=== PATIENT | female | born 1960 | race American Indian/Alaskan Native ===

== ENCOUNTER 2019-01-08 22:16 | Observation (INO) | payer OTHER ==
[2019-01-08] MEDS ORDERED: ASPIRIN PO ONE (22:34)
[2019-01-08 22:57] LABS: Basophils # (Auto) 0.1 K/mm3 (0.0-0.1); Eosinophils # (Auto) 0.1 K/mm3 (0.0-0.4); Eosinophils % (Auto) 1.8 % (0.0-4.3); Hematocrit 36.8 % (30.3-42.9); Hemoglobin 12.3 gm/dl (10.1-14.3); Lymphocytes # (Auto) 2.9 K/mm3 (1.2-5.4); Lymphocytes % (Auto) 38.1 % (13.4-35.0); Mean Corpuscular HGB Conc 34 % (30-34); Mean Corpuscular Volume 85 fl (79-97); Monocytes # (Auto) 0.6 K/mm3 (0.0-0.8); Monocytes % (Auto) 7.9 % (0.0-7.3); Platelet Count 343 K/mm3 (140-440); Red Blood Count 4.31 M/mm3 (3.65-5.03); Red Cell Distribution Width 13.7 % (13.2-15.2)
--- NOTE | 2019-01-08 23:02 | Emergency Department Report ---
ED Chest Pain HPI - General Chief Complaint: Chest Pain Stated Complaint: CHEST PAIN Time Seen by Provider: 01/08/19 22:42 Source: patient, family Mode of arrival: Ambulatory Limitations: No Limitations - History of Present Illness Initial Comments: 58-year-old -[place] female presents to the emergency department with complaint of some midsternal nonradiating chest pressure that started while the patient was at the movies. She describes it as a heaviness. It is associated with some shortness of breath. The patient says that she stood up and got dizzy and "I felt like I was walking through a tunnel." The patient took a sublingual nitroglycerin without any resolution or improvement of her chest pain, but it did cause a headache. She has a past medical history of hypertension, GERD, coronary artery disease with a "mild" heart attack. She does not have any cardiac stents. Patient's primary care physician is a Dr. Viraj Zepeda. She has seen a certified personal finance counselor and had a negative stress test back in October or November of this year. She denies any tobacco or illicit drug use. Severity scale (0 -10): 7 - Related Data Allergies Allergy/AdvReac Type Severity Reaction Status Date / Time Sulfa (Sulfonamide Allergy Anaphylaxis Verified 01/08/19 22:20 Antibiotics) Heart Score - HEART Score History: Moderately suspicious EKG: Normal Age: 45-65 Risk factors: > 3 risk factors or hx of atherosclerotic disease Troponin: < normal limit HEART Score: 4 - Critical Actions Critical Actions: 4-6 pts:12-16.6% risk of adverse cardiac event. Should be admitted ED Review of Systems ROS: Stated complaint: CHEST PAIN Other details as noted in HPI Comment: All other systems reviewed and negative Constitutional: denies: chills, fever Eyes: denies: eye pain, vision change ENT: denies: ear pain, throat pain Respiratory: shortness of breath. denies: cough Cardiovascular: chest pain. denies: palpitations Gastrointestinal: denies: abdominal pain, vomiting Genitourinary: denies: dysuria, discharge Musculoskeletal: denies: back pain, arthralgia Skin: denies: rash, lesions Neurological: denies: weakness, numbness ED Past Medical Hx - Past Medical History Hx Hypertension: Yes Hx Heart Attack/AMI: Yes (MILD) Hx GERD: Yes - Surgical History Hx Cholecystectomy: Yes Additional Surgical History: HYSTERECTOMY - Social History Smoking Status: Never Smoker Substance Use Type: Alcohol ED Physical Exam - General Limitations: No Limitations - Other Other exam information: GENERAL: The patient is well-developed well-nourished. HENT: Normocephalic. Atraumatic. Patient has moist mucous membranes. EYES: Extraocular motions are intact. NECK: Supple. Trachea is midline. CHEST/LUNGS: Clear to auscultation. There is no respiratory distress noted. HEART/CARDIOVASCULAR: Regular. There is no tachycardia. There is no murmur. ABDOMEN: Abdomen is soft, nontender. Patient has normal bowel sounds. There is no abdominal distention. SKIN: Skin is warm and dry. NEURO: The patient is awake, alert, and oriented. The patient is cooperative. The patient has no focal neurologic deficits. The patient has normal speech. Cranial nerves II through XII grossly intact. MUSCULOSKELETAL: There is no tenderness or deformity. There is no limitation range of motion. There is no evidence of acute injury. ED Course Vital Signs 01/08/19 01/08/19 01/08/19 22:31 22:55 23:49 Temperature 98 F 98.0 F Pulse Rate 81 80 Respiratory 18 16 16 Rate Blood Pressure 120/79 Blood Pressure 131/84 [Left] O2 Sat by Pulse 98 96 Oximetry ASYA score - Asya Score Age > 65: (0) No Aspirin use within the Past 7 Days: (1) Yes 3 or more CAD Risk Factors: (1) Yes 2 or more Angina events in past 24 hrs: (1) Yes Known CAD with more than 50% Stenosis: (0) No Elevated Cardiac Markers: (0) No ST Deviation Greater than 0.5mm: (0) No ASYA Score: 3 ED Medical Decision Making - Lab Data Result diagrams: 01/08/19 22:45 01/08/19 22:45 - EKG Data -: EKG Interpreted by Me EKG shows normal: sinus rhythm (PVCs), axis, intervals, QRS complexes (low voltage), ST-T waves Rate: normal - EKG Data When compared to previous EKG there are: previous EKG unavailable Interpretation: other (sinus rhythm with PVCs, low voltage. No ST elevation ID) - Radiology Data Radiology results: image reviewed interpreted by me: Chest x-ray does not show any acute process. There are no pleural effusions, obvious pneumonia and there is no pneumothorax. - Medical Decision Making This patient presents with some acute midsternal chest pain/pressure that she describes as a heaviness, as if someone is sitting on her chest. Patient did not have much response to a sublingual nitroglycerin, nor much to a dose of morphine. EKG does not show any signs of ST elevation ID or dysrhythmia. Patient's labs so far are unremarkable including a negative troponin and negative d-dimer. Chest x-ray does not show any pleural effusions, pneumothorax, focal consolidation, pneumonia, or any other acute process. Allegedly, the patient had a negative stress test a few months ago. However this may still be angina. She is moderate on the hard score and ASYA score. The patient will be admitted to the hospital for further evaluation and treatment and was accepted for admission by the hospitalist, Dr. North. - Differential Diagnosis ID, Angina, Pneumonia, GERD Critical Care Time: No Critical care attestation.: If time is entered above; I have spent that time in minutes in the direct care of this critically ill patient, excluding procedure time. ED Disposition Clinical Impression: Acute chest pain, Ruled out for myocardial infarction Disposition: OP ADMIT IP TO THIS HOSP Is pt being admited?: Yes Condition: Fair Instructions: Chest Pain (ED) Referrals: LORETTA POWERS MD [Primary Care Provider] - 3-5 Days Time of Disposition: 00:11
[2019-01-08] MEDS ORDERED: MORPHINE IV ONE (23:17)
--- NOTE | 2019-01-08 23:18 | XRay Report ---
CHEST 1 VIEW 10:54 PM INDICATION / CLINICAL INFORMATION: CHEST PAIN. COMPARISON: None available. FINDINGS: SUPPORT DEVICES: None. HEART / MEDIASTINUM: The heart size and pulmonary vasculature are normal. The aorta is normal in jose sondra. LUNGS / PLEURA: No significant pulmonary or pleural abnormality. No pneumothorax. ADDITIONAL FINDINGS: No significant additional findings. IMPRESSION: No acute findings. Signer Name: Colt Gill MD Signed: 01/08/2019 11:13 PM Workstation Name: [id number]
[2019-01-08 23:19] LABS: BUN/Creatinine Ratio 26; Blood Urea Nitrogen 18 mg/dL (7-17); Calcium 9.6 mg/dL (8.4-10.2); Hemolysis Index 6
[2019-01-09] MEDS ORDERED: ZOFRAN IV PRN (00:57)
[2019-01-09] MEDS ORDERED: TYLENOL PO PRN (00:57)
[2019-01-09] MEDS ORDERED: SODIUM CHLORIDE FLUSH SYRINGE 10 ML IV PRN (00:57)
[2019-01-09] MEDS ORDERED: MORPHINE IV PRN (01:02)
--- NOTE | 2019-01-09 01:40 | History and Physical Report ---
History of Present Illness Date of examination: 01/09/19 Chief complaint: Chest pain History of present illness: Patient is a 58 year old -British female with history of hypertension an d questionable CAD who presented to the ED on account of few hours history of midsternal chest pain. She described it as pressure-like in character, rated 8/10 and non-radiating. Pain is worse with sitting up but no known relieving factors. She has associated cough, headache and lightheadedness. She denies shortness of breath, palpitation, diaphoresis, arm numbness or tingling sensation, fever, chills, leg swelling, orthopnea, PND, syncope or loss of consciousness. Her last stress test was few months ago at [place], [place] which was negative. Past History Past Medical History: GERD, hypertension, other (Questionable CAD) Past Surgical History: cholecystectomy, hysterectomy (partial ) Social history: other (she admits to occasional alcohol use but denies tobacco or illicit drug use) Family history: other (Father from heart attack in his 60's) Medications and Allergies Allergies Allergy/AdvReac Type Severity Reaction Status Date / Time Sulfa (Sulfonamide Allergy Anaphylaxis Verified 01/08/19 22:20 Antibiotics) Active Meds: Active Medications Acetaminophen (Tylenol) 650 mg PO Q4H PRN PRN Reason: Pain MILD(1-3)/Fever >100.5/KNOTT Enoxaparin Sodium (Lovenox) 40 mg SUB-Q QDAY@1000 [place] Famotidine (Pepcid) 20 mg PO BID [place] Morphine Sulfate (Morphine) 2 mg IV Q4H PRN PRN Reason: Pain , Severe (7-10) Ondansetron HCl (Zofran) 4 mg IV Q8H PRN PRN Reason: Nausea And Vomiting Oxycodone/Acetaminophen (Percocet 5/325) 1 tab PO Q6H PRN PRN Reason: Pain, Moderate (4-6) Sodium Chloride (Sodium Chloride Flush Syringe 10 Ml) 10 ml IV BID [place] Sodium Chloride (Sodium Chloride Flush Syringe 10 Ml) 10 ml IV PRN PRN PRN Reason: LINE FLUSH Review of Systems All systems: negative (all other systems reviewed with the patient and are negative) Exam - Constitutional Vitals: Temp Pulse Resp BP Pulse Ox 98.0 F 80 16 131/84 96 01/08/19 22:55 01/08/19 22:55 01/08/19 23:49 01/08/19 22:55 01/08/19 22:55 General appearance: Present: no acute distress, obese - EENT Eyes: Present: PERRL, EOM intact ENT: hearing intact, clear oral mucosa - Neck Neck: Present: supple, normal ROM - Respiratory Respiratory effort: normal, other (chest pain reproducible) Respiratory: bilateral: CTA - Cardiovascular Rhythm: regular Heart Sounds: Present: S1 & S2. Absent: rub, click - Extremities Extremities: pulses symmetrical, No edema Peripheral Pulses: within normal limits - Abdominal General gastrointestinal: Present: soft, non-tender, non-distended, normal bowel sounds Female genitourinary: Present: deferred - Integumentary Integumentary: Present: clear, warm, dry - Musculoskeletal Musculoskeletal: gait normal, strength equal bilaterally - Psychiatric Psychiatric: appropriate mood/affect, intact judgment & insight - Neurologic Neurologic: CNII-XII intact, moves all extremities Results - Labs CBC & Chem 7: 01/08/19 22:45 01/08/19 22:45 Labs: Laboratory Last Values WBC 7.6 K/mm3 (4.5-11.0) 01/08/19 22:45 RBC 4.31 M/mm3 (3.65-5.03) 01/08/19 22:45 Hgb 12.3 gm/dl (10.1-14.3) 01/08/19 22:45 Hct 36.8 % (30.3-42.9) 01/08/19 22:45 MCV 85 fl (79-97) 01/08/19 22:45 MCH 29 pg (28-32) 01/08/19 22:45 MCHC 34 % (30-34) 01/08/19 22:45 RDW 13.7 % (13.2-15.2) 01/08/19 22:45 Plt Count 343 K/mm3 (140-440) 01/08/19 22:45 Lymph % (Auto) 38.1 % (13.4-35.0) H 01/08/19 22:45 [place] % (Auto) 7.9 % (0.0-7.3) H 01/08/19 22:45 Eos % (Auto) 1.8 % (0.0-4.3) 01/08/19 22:45 Baso % (Auto) 1.0 % (0.0-1.8) 01/08/19 22:45 Lymph # 2.9 K/mm3 (1.2-5.4) 01/08/19 22:45 [place] # 0.6 K/mm3 (0.0-0.8) 01/08/19 22:45 Eos # 0.1 K/mm3 (0.0-0.4) 01/08/19 22:45 Baso # 0.1 K/mm3 (0.0-0.1) 01/08/19 22:45 Seg Neutrophils % 51.2 % (40.0-70.0) 01/08/19 22:45 Seg Neutrophils # 3.9 K/mm3 (1.8-7.7) 01/08/19 22:45 159.89 ng/mlDDU (0-234) 01/08/19 23:14 Sodium 142 mmol/L (137-145) 01/08/19 22:45 Potassium 3.6 mmol/L (3.6-5.0) 01/08/19 22:45 Chloride 101.4 mmol/L (98-107) 01/08/19 22:45 Carbon Dioxide 28 mmol/L (22-30) 01/08/19 22:45 16 mmol/L 01/08/19 22:45 BUN 18 mg/dL (7-17) H 01/08/19 22:45 0.7 mg/dL (0.7-1.2) 01/08/19 22:45 Estimated GFR > 60 ml/min 01/08/19 22:45 26 % 01/08/19 22:45 Glucose 111 mg/dL (65-100) H 01/08/19 22:45 Calcium 9.6 mg/dL (8.4-10.2) 01/08/19 22:45 < 0.010 ng/mL (0.00-0.029) 01/08/19 22:45 Assessment and Plan Assessment and plan: Acute chest pain, rule out ACS -Chest pain likely secondary to costochondritis versus GERD -On Chest pain pathway -Patient's last stress test was few months ago which was negative HTN -Stable Questionable CAD -Stable GERD -On Famotidine DVT prophylaxis with Lovenox Disposition: Patient will be placed in observation status with plan for discharge if serial troponin levels are negative and chest pain is resolved Time spent: 38 minutes
[2019-01-09] MEDS: PEPCID PO SCH ×2 (09:44→20:59)
[2019-01-09] MEDS: SODIUM CHLORIDE FLUSH SYRINGE 10 ML IV SCH ×2 (09:44→20:59)
[2019-01-09] MEDS ORDERED: LOVENOX SUB-Q SCH (10:00)
[2019-01-09] MEDS: NITROSTAT SL PRN ×2 (10:24→10:36)
[2019-01-09] MEDS: PERCOCET 5/325 PO PRN ×2 (10:27→20:53)
--- NOTE | 2019-01-09 11:07 | Consultation ---
History of Present Illness Consult date: 01/09/19 Consult reason: chest pain History of present illness: The patient is a 58-year-old female who presented to the emergency room with 30- 45 minutes of midsternal pressure quality chest discomfort associated with dizziness and lightheadedness. She has a history of hypertension and hyperlipidemia. She had similar symptoms a few months ago and underwent stress testing with her director on air in [facility]. She states that the stress test was negative and no further evaluation was performed with respect to the chest discomfort. She also states she had an echocardiogram but does not know the results. Cardiac enzymes are thus far negative 3. The electrocardiogram shows sinus rhythm with no acute ischemic changes. The patient has taken sublingual nitroglycerin with partial relief but the chest discomfort occurs. The nitroglycerin has given her a headache. She denies palpitations or syncope. There has been no significant shortness of breath. Past History Past Medical History: GERD, hypertension, other (Questionable CAD) Past Surgical History: cholecystectomy, hysterectomy (partial ) Social history: other (she admits to occasional alcohol use but denies tobacco or illicit drug use) Family history: other (Father from heart attack in his 60's) Medications and Allergies Allergies Allergy/AdvReac Type Severity Reaction Status Date / Time Sulfa (Sulfonamide Allergy Anaphylaxis Verified 01/08/19 22:20 Antibiotics) Home Medications Medication Instructions Recorded Confirmed Last Taken Type Aspirin [Aspirin BABY CHEW TAB] 81 mg PO QDAY 01/09/19 01/09/19 Unknown History Carvedilol [Coreg] 6.25 mg PO BID 01/09/19 01/09/19 Unknown History Lisinopril/Hydrochlorothiazide 1 tab PO QDAY 01/09/19 01/09/19 Unknown History [Zestoretic 20-25 mg] Nitroglycerin [Nitrostat] 0.4 mg SL Q5M PRN 01/09/19 01/09/19 Unknown History Omeprazole 40 mg PO QDAY 01/09/19 01/09/19 Unknown History Ranitidine HCl [Zantac] 300 mg PO QDAY 01/09/19 01/09/19 Unknown History Active Meds: Active Medications Acetaminophen (Tylenol) 650 mg PO Q4H PRN PRN Reason: Pain MILD(1-3)/Fever >100.5/KNOTT Enoxaparin Sodium (Lovenox) 40 mg SUB-Q QDAY@1000 [facility] Last Admin: 01/09/19 09:43 Dose: 40 mg Documented by: Famotidine (Pepcid) 20 mg PO BID [facility] Last Admin: 01/09/19 09:44 Dose: 20 mg Documented by: Morphine Sulfate (Morphine) 2 mg IV Q4H PRN PRN Reason: Pain , Severe (7-10) Nitroglycerin (Nitrostat) 0.4 mg SL .Q5MIN PRN PRN Reason: Chest Pain Last Admin: 01/09/19 10:36 Dose: 0.4 mg Documented by: Nitroglycerin (Nitro-Bid 2%) 0.5 inch TP QIDNTG [facility]; Protocol Ondansetron HCl (Zofran) 4 mg IV Q8H PRN PRN Reason: Nausea And Vomiting Oxycodone/Acetaminophen (Percocet 5/325) 1 tab PO Q6H PRN PRN Reason: Pain, Moderate (4-6) Last Admin: 01/09/19 10:27 Dose: 1 tab Documented by: Sodium Chloride (Sodium Chloride Flush Syringe 10 Ml) 10 ml IV BID [facility] Last Admin: 01/09/19 09:44 Dose: 10 ml Documented by: Sodium Chloride (Sodium Chloride Flush Syringe 10 Ml) 10 ml IV PRN PRN PRN Reason: LINE FLUSH Review of Systems Constitutional: no fever, no chills Eyes: bilateral: blurred vision (w/o) Ears, nose, mouth and throat: no epistaxis Respiratory: no hemoptysis Gastrointestinal: no abdominal pain Musculoskeletal: no frequent falls Integumentary: no rash Neurological: no seizures Psychiatric: no anxiety Endocrine: no cold intolerance, no heat intolerance Hematologic/Lymphatic: no easy bruising Allergic/Immunologic: no urticaria Physical Examination Vital Signs Temp Pulse Resp BP Pulse Ox 98 F 81 18 120/79 98 01/08/19 22:31 01/08/19 22:31 01/08/19 22:31 01/08/19 22:31 01/08/19 22:31 General appearance: no acute distress HEENT: Positive: PERRL, Normocephaly Neck: Positive: neck supple. Negative: JVD/HJR, Bruit Cardiac: Negative: Regular Rhythm, Audible Murmur Lungs: Positive: clear to auscultation Neuro: Positive: Grossly Intact Abdomen: Positive: Soft. Negative: Tender Skin: Positive: Clear Musculoskeletal: Normal Range of Motion Extremities: Present: Other (peripheral pulses normal and sym). Absent: edema Results 01/08/19 22:45 01/08/19 22:45 CBC 01/08/19 Range/Units 22:45 WBC 7.6 (4.5-11.0) K/mm3 RBC 4.31 (3.65-5.03) M/mm3 Hgb 12.3 (10.1-14.3) gm/dl Hct 36.8 (30.3-42.9) % Plt Count 343 (140-440) K/mm3 Lymph # 2.9 (1.2-5.4) K/mm3 [place] # 0.6 (0.0-0.8) K/mm3 Eos # 0.1 (0.0-0.4) K/mm3 Baso # 0.1 (0.0-0.1) K/mm3 Comprehensive Metabolic Panel 01/08/19 Range/Units 22:45 Sodium 142 (137-145) mmol/L Potassium 3.6 (3.6-5.0) mmol/L Chloride 101.4 (98-107) mmol/L Carbon Dioxide 28 (22-30) mmol/L BUN 18 H (7-17) mg/dL Creatinine 0.7 (0.7-1.2) mg/dL Glucose 111 H (65-100) mg/dL Calcium 9.6 (8.4-10.2) mg/dL Assessment and Plan The patient is a 58-year-old woman with a history of hypertension and hyperlipidemia. She presents with recurrent atypical chest discomfort and a history of a recently negative stress test. At this point in time it would appear appropriate to proceed with coronary angiography for a definitive assessment. The patient is agreeable.
[2019-01-09] MEDS ORDERED: NACL 0.9% 500 ML 500 ML IV SCH (12:00)
[2019-01-09] MEDS: NITRO-BID 2% TP SCH ×3 (13:12→18:35)
--- NOTE | 2019-01-09 13:18 | Event Note ---
Date: 01/09/19 patient with chest pain. I have seen and examined her. Add nitro SL Q 5 mins prn chest pain, add Nitropaste Cardiology consulted.
[2019-01-10] MEDS: NITRO-BID 2% TP SCH ×3 (05:29→16:49)
[2019-01-10] MEDS ORDERED: NACL 0.9% 500 ML 500 ML IV SCH (06:00)
[2019-01-10 06:04] LABS: BUN/Creatinine Ratio 32; Blood Urea Nitrogen 16 mg/dL (7-17); Hemolysis Index 49
[2019-01-10 07:06] LABS: INR 1.05 (0.87-1.13); Partial Thromboplastin Time 28.7 Sec. (24.2-36.6)
[2019-01-10] MEDS ORDERED: ECOTRIN PO ONE (08:18)
[2019-01-10] MEDS ORDERED: VERSED ONE (08:20)
[2019-01-10] MEDS ORDERED: SUBLIMAZE ONE (08:20)
[2019-01-10] MEDS ORDERED: HEPARIN 10,000 UNITS/10 ML ONE (08:23)
[2019-01-10] MEDS ORDERED: HEPARIN/NS 5000 UNIT/500ML(CATH LAB) 1,000 ML IR ONE (08:23)
[2019-01-10] MEDS ORDERED: XYLOCAINE 2% INFILTRATI ONE (08:24)
[2019-01-10] MEDS ORDERED: CALAN ONE (08:24)
[2019-01-10] MEDS ORDERED: NITROGLYCERIN SYRINGE 3 ML ONE (08:25)
[2019-01-10] MEDS ORDERED: ECOTRIN PO SCH (08:30)
--- NOTE | 2019-01-10 09:38 | Progress Note ---
Assessment and Plan [facility] this am via [facility]: 1. Minimal nonobstructive CAD 2. Normal LV fxn (60-65%) 3. Nl lvedp 4. No as 5. Nl root aortogram w/o evidence of ulcer/dissection/AI clinically stable cp-free aggressive primary and secondary prevention measures Stable cv status Subjective Date of service: 01/10/19 Interval history: no sxs overnight Objective Vital Signs Temp Pulse Pulse Resp BP Pulse Ox 01/10/19 07:15 98.3 F 90 16 140/82 99 01/10/19 04:17 98.3 F 97 H 18 150/94 97 01/10/19 00:11 98.1 F 98 H 18 108/59 96 01/10/19 00:00 96 H 01/09/19 19:37 98.1 F 61 18 104/67 95 01/09/19 18:35 68 140/79 01/09/19 17:35 83 147/100 97 01/09/19 13:17 140/79 01/09/19 13:15 65 140/79 01/09/19 13:12 92 H 116/78 01/09/19 11:36 68 18 97 01/09/19 11:00 68 01/09/19 10:44 18 116/78 01/09/19 10:36 92 H 116/78 01/09/19 10:24 96 H 139/82 - Physical Examination HEENT: Positive: PERRL, Normocephaly Neck: Positive: neck supple. Negative: JVD/HJR, Bruit Neuro: Positive: Grossly Intact Abdomen: Positive: Soft. Negative: Tender Skin: Positive: Clear Musculoskeletal: Normal Range of Motion Extremities: Present: Other (peripheral pulses normal and sym). Absent: edema - Labs and Meds Coagulation 01/10/19 Range/Units 06:32 PT 13.4 (12.2-14.9) Sec. INR 1.05 (0.87-1.13) APTT 28.7 (24.2-36.6) Sec. Comprehensive Metabolic Panel 01/10/19 Range/Units 05:31 Sodium 142 (137-145) mmol/L Potassium 3.7 (3.6-5.0) mmol/L Chloride 102.9 (98-107) mmol/L Carbon Dioxide 25 (22-30) mmol/L BUN 16 (7-17) mg/dL Creatinine 0.5 L (0.7-1.2) mg/dL Glucose 129 H (65-100) mg/dL Calcium 9.0 (8.4-10.2) mg/dL
--- NOTE | 2019-01-10 09:48 | Cardiac Catherization Report ---
REFERRING PHYSICIAN: Dr. Murray and Dr. Lake Cha. INDICATION FOR PROCEDURE: The patient is a very pleasant 58-year-old -[place]og[place] female who is brought to the hospital with recurrent chest pain, had a recent normal stress test as an outpatient, referred for left heart catheterization. Risks, benefits, alternatives discussed at length prior to obtaining informed consent. PROCEDURE IN DETAIL: The patient was brought to catheterization lab in a postabsorptive state, prepped and draped in sterile fashion. Fer's test in right hand was normal. A 2 mL of 2% lidocaine used to anesthetize the right wrist. A standard 6-[place]ian hydrophilic sheath used to cannulate the right radial artery via modified Seldinger technique. All exchanges performed to exchange a J-tip guidewire. JL3.5 of catheter was used to engage the left main No dampening or ventricularization noted. JR4 catheter used to cross the aortic valve under fluoroscopic guidance. Left ventriculography performed in 30 HDEZ and 30 AZERI projections via hand injections, catheter flushed. Manual pullback performed with continuous pressure monitoring. Catheter was used to engage the right coronary. No dampening or ventricularization. Cineangiography performed in all projections. Next, due to recurrent chest pain, hypertension and unremarkable coronaries, decided to proceed with a root aortogram with a pigtail catheter in the AZERI projection with power injector. Next, catheter removed from the body of wire, sheath removed. Manual pressure used to achieve hemostasis. There were no immediate complications. I directly supervised the administration of moderate sedation with fentanyl and Versed from 8:50 a.m. to 9:15 a.m. DATA: Aortic pressure is 170/90, LV pressure is 170. LVP of 12 mmHg. Left ventriculography reveals normal systolic performance with estimated ejection fraction of 60-65%. No evidence of aortic stenosis. Normal LVEDP. CORONARY ANATOMY: This is a right dominant system. Left main without significant disease, bifurcates left anterior descending and left circumflex. Left circumflex, moderate sized vessel, courses AV groove. Scattered luminal irregularities, but no obstructive disease identified. LAD is a moderate sized vessel, courses anterior intergroove, wraps around the apex, no significant obstructive disease identified. There is an intramyocardial segment in the mid LAD with minimal diastolic collapse. No obstructive disease identified. Right coronary is a small vessel, courses AV groove, distally bifurcates in the posterior descending and posterolateral branch. No discrete stenoses identified, scattered luminal irregularities are identified. Root aortography reveals normal contour, no evidence of aortic insufficiency. No evidence of dissection, aortic insufficiency or penetrating aortic ulcer. Normal great vessel anatomy. CONCLUSIONS: 1. Minimal nonobstructive coronary artery disease in this right dominant system. 2. Normal left ventricular systolic performance, estimated ejection fraction of 55-60%. 3. No evidence of aortic stenosis. 4. Normal root aortography without evidence of dissection, penetrating aortic ulcer, or aortic insufficiency. Recommend aggressive risk factor modification, primary and secondary prevention measures, optimal medical therapy. Results of procedure explained to the patient and family. All questions and concerns were addressed. Stable cardiac status. Standard radial care. Follow up with primary parachute/combatant diver officer in the office. JOB# [id number] LISS/JENNIFER
[2019-01-10] MEDS: PEPCID PO SCH (11:30)
[2019-01-10 11:33] VITALS: BP 153/96
[2019-01-10] MEDS: SODIUM CHLORIDE FLUSH SYRINGE 10 ML IV SCH (13:43)
--- NOTE | 2019-01-10 15:15 | Discharge Summary ---
Providers - Providers Date of Admission: 01/09/19 00:57 Date of discharge: 01/10/19 Attending physician: ULICES MARTINEZ 01/09/19 10:09 Consult to Physician [CONS] Routine Comment: Consulting Provider: ANGELITA ZAFAR Physician Instructions: Reason For Exam: chest pain [facility] Condition: Fair Core Measure Documentation - Palliative Care Palliative Care/ Comfort Measures: Not Applicable - Core Measures Any of the following diagnoses?: none Exam - Constitutional Vitals: Temp Pulse Resp BP Pulse Ox 98.3 F 96 H 18 153/96 96 01/10/19 07:15 01/10/19 12:15 01/10/19 12:15 01/10/19 11:32 01/10/19 12:15 Plan Activity: advance as tolerated Diet: low fat, low cholesterol, low salt Plan of Treatment: 1.Follow up with PCP in 1 week. 2.Follow up with Cardiology in 1 week Follow up with: LORETTA POWERS MD [Primary Care Provider] - 3-5 Days Forms: CardCath PCI D/C Instructions
[2019-01-10] MEDS: PERCOCET 5/325 PO PRN (15:24)
== END 2019-01-10 05:45 | disposition home or self-care (01) ==
LOC: ED 22:16 → 4A 01-09 00:57 → INTOOBSV 01-09 00:57
PROVIDERS: ADMIT Internal Medicine; ATTEND Internal Medicine
DX: I25.10 Atherosclerotic heart disease of native coronary artery without angina pectoris (principal); I10 Essential (primary) hypertension; K21.9 Gastro-esophageal reflux disease without esophagitis
CPT/HCPCS: 36415; 71045; 80048; 82962; 83735; 84443; 84484; 85025; 85379; 85610; 85730; 87116; 93005; 93010; 93458; 93567; 96372; 96374; 96375; 96376; 99285; C1894; G0378; J1644; J1650; J2250; J2270; J2405; J3010; J7040; Q9967